=== PATIENT | female | born 1975 | race Caucasian/White ===

== ENCOUNTER 2023-03-15 20:23 | Inpatient (IN) ==
[2023-03-15] MEDS ORDERED: methylPREDNISolone 125 MG/2 ML VIAL IV STA (20:47)
[2023-03-15] MEDS ORDERED: ALBUT/IPRATROP 3MG/0.5MG NEB 3 ML VIAL NEB ONE (20:47)
[2023-03-15] MEDS ORDERED: SODIUM CHLORIDE 0.9% 1,000 ML IV ONE (20:49)
[2023-03-15] MEDS ORDERED: SODIUM CHLORIDE 0.65% NA SOLN 45 ML (OCEAN) ONE (20:49)
--- NOTE | 2023-03-15 20:50 | Emergency Department Note ---
Impression & Plan Acute respiratory failure with hypoxia, Asthma with exacerbation, Flu-2009 H1N1 w oth resp ED Provider Note NAME: ZOHRA MARTINEZ AGE: 48 SEX: F ARRIVES VIA: Walk-In INFORMANT: Patient ED PROVIDER(S): Bobby Shore MD CHIEF COMPLAINT: Cough, congestion, shortness of breath PLAN: Disposition: Admit MEDICAL DECISION MAKING: The patient is a pleasant 48-year-old woman with a past medical history of asthma who presents to the emergency department via walk-in for evaluation of worsening cough, congestion, chest tightness and shortness of breath which is not improving with her asthma inhalers in the setting of reporting that coworkers who she works with also having similar symptoms but is not aware of any viral testing they may have had. She denies fevers, vomiting, diarrhea or urinary symptoms. On evaluation the patient is in mild-moderate respiratory distress with increased work of breathing with poor air movement and underlying wheeze/bronchospasm with prolonged expiratory phase. Respiratory rate was in the 30s, heart rate in the 130s, the patient was hypertensive in the 170s/110s. Treatment initiated with IV hydration, Solu-Medrol, hour-long DuoNeb however despite initiation of her DuoNeb the patient did not have any significant improvement long-term through her treatment and so she was placed on BiPAP with improved work of breathing. EKG without overt acute ischemia. CXR negative for acute cardiopulmonary process per my personal preliminary review/interpretation. WBC, H/H and platelets within normal limits. Chemistry without metabolic acidosis. Electrolytes and FTs unremarkable. High-sensitivity troponin 3.3, within normal limits. hCG was negative. Respiratory viral panel/[employer] was positive for influenza A H1 2009. On reevaluation the patient's work of breathing was significant improved and she was weaned off of BiPAP to nasal cannula. Given the degree of the patient's respiratory distress/respiratory failure she does agree with admission for further management. Tamiflu ordered. Case was discussed with Dr. Simmons, [facility] hospitalist, who will evaluate the patient for admission. Triage Nursing notes reviewed and agree them. Prior/external medical records reviewed Vital Signs: reviewed Differential diagnosis: Reactive airway disease, pneumonia, pneumothorax, COPD, CHF, infections, cardiac ischemia, pulmonary embolism, musculoskeletal, gastrointestinal, as well as other pathologies. ER treatment provided: See below. Diagnostics interpreted by me: ECG: Sinus tachycardia, 136 bpm, no ectopy, no overt ST elevation or depression, QTc 538, QRS 70 Cardiac Monitoring: An order for continuous cardiac monitoring was placed and demonstrated Sinus tachycardia, 136 bpm, no ectopy Laboratory studies: See below Imaging studies: See below Consultation(s): Case was discussed with Dr. Simmons, [facility] hospitalist, who will evaluate the patient for admission. HPI: The patient is a pleasant 48-year-old woman with a past medical history of asthma who presents to the emergency department via walk-in for evaluation of worsening cough, congestion, chest tightness and shortness of breath which is not improving with her asthma inhalers in the setting of reporting that coworkers who she works with also having similar symptoms but is not aware of any viral testing they may have had. She denies fevers, vomiting, diarrhea or urinary symptoms. ROS: See above HPI for pertinent positives & negatives. A total of 10 systems reviewed and were otherwise negative. VITALS:See Below PHYSICAL EXAMINATION: GENERAL: Awake, alert, ill-appearing, in mild-moderate respiratory distress HENT: Normocephalic, atraumatic. Boggy nasal turbinates. Oropharynx with dry mucous membranes EYES: Normal conjunctiva. Sclera non-icteric. NECK: Supple. No nuchal rigidity. FROM. No JVD. RESPIRATORY: Diminished breath sounds bilaterally with underlying wheeze and prolonged expiratory phase with increased work of breathing CARDIAC: Tachycardic rate, normal rhythm. Extremities warm and well perfused. Pulses equal. ABDOMEN: Soft, non-distended. No tenderness to palpation. No rebound or guarding. No masses. RECTAL: Deferred. MUSCULOSKELETAL: Chest examination reveals no tenderness. The back is symmetrical on inspection without obvious abnormality. There is no CVA tenderness to palpation. No joint edema. LOWER EXTREMITIES: Calves are equal size bilaterally and non-tender. No edema. No discoloration. NEURO: Normal sensorium. No sensory or motor deficits noted. SKIN: No rash or jaundice noted. ED COURSE: Critical Care: I have personally spent greater than [] minutes of critical care time in the direct management of this patient. This includes bedside care, interpretation of diagnostic studies, and testing, discussion with consultants, patient, and family members, and other required patient management activities. This [] minutes is in excess of all separately billable procedures. Bobby Shore MD Past Med/Surg History Medical History Asthma delivery delivered Surgical History H/O wisdom tooth extraction Family History Grandfather (Maternal) Myocardial infarction Grandfather (Paternal) Myocardial infarction Other Stroke Denies family history of Colon cancer Ovarian cancer Prostate cancer Breast cancer Hypertension Social History Smoking Status: Never smoker Hx Alcohol Use: Yes Alcohol type: wine Alcohol Intake Frequency: 4 or More x per/Week Hx Substance Use: No Preferred Language: Romanian Communication Ability: Effective marital status: Current Living Situation: Spouse current occupational status: employed current occupation: PLANNER/SCHEDULER FOR [employer] Feels Safe at Home: Yes Childhood Exposure to Second-Hand Smoke: Yes Diet Comment: no specific diet Dental Care, Regularly: Yes Physical Activity Frequency: Does not Exercise Seatbelt Use: always Sunscreen Use: Yes Do you think of yourself as: straight/heterosexual Allergies Allergies Allergy/AdvReac Type Severity Reaction Status Date / Time No Known Allergies Allergy Verified 03/15/23 22:10 Home Meds Home Medications Medication Instructions Recorded Confirmed albuterol sulfate 90 mcg/actuation 2 puff inhalation Q6H PRN 03/15/23 03/15/23 aerosol inhaler shortness of breath or wheezing Results & Data (ED) Vital Signs Vital Signs - 24 hr 03/15/23 20:27 03/15/23 20:44 03/15/23 20:55 Temperature 36.8 C Temperature Source Oral Pulse Rate 139 H 134 H Pulse Rate [Apical] 127 H Pulse Rate from SpO2 Sensor Pulse Rhythm Respiratory Rate 30 H 24 Respiratory Effort / Characteristics Labored Short of Breath Short of Breath Respiratory Depth Respiratory Pattern Tachypnea Blood Pressure 176/119 H Blood Pressure [Right Arm] Blood Pressure Mean 138 Blood Pressure Mean [Right Arm] Blood Pressure Position Sitting Pulse Oximetry 88 L 100 Oxygen Delivery Method Room Air Nasal Cannula Oxygen Flow Rate 6 Fraction of Inspired Oxygen Sepsis Recent Fever Within 48 Hours No Sepsis New/Unexplained Change in Mental Status N/A Sepsis Action Taken by Nursing No Action Required Oxygen Flow Rate - Titration Pulse Oximetry Post Tiitration 03/15/23 21:01 03/15/23 21:01 03/15/23 21:01 Temperature Temperature Source Pulse Rate Pulse Rate [Apical] 130 H Pulse Rate from SpO2 Sensor Pulse Rhythm Respiratory Rate 20 Respiratory Effort / Characteristics Labored Short of Breath Labored Short of Breath Respiratory Depth Normal Respiratory Pattern Gasping Blood Pressure Blood Pressure [Right Arm] 158/97 H Blood Pressure Mean Blood Pressure Mean [Right Arm] 117 Blood Pressure Position Pulse Oximetry 87 L 98 Oxygen Delivery Method Nasal Cannula Oxymask Oxygen Flow Rate 7 Fraction of Inspired Oxygen Sepsis Recent Fever Within 48 Hours Sepsis New/Unexplained Change in Mental Status Sepsis Action Taken by Nursing Oxygen Flow Rate - Titration 6 Pulse Oximetry Post Tiitration 96 03/15/23 21:01 03/15/23 21:09 03/15/23 21:23 Temperature Temperature Source Pulse Rate 130 H 134 H 124 H Pulse Rate [Apical] Pulse Rate from SpO2 Sensor 133 H Pulse Rhythm Regular Respiratory Rate 20 24 21 Respiratory Effort / Characteristics Respiratory Depth Respiratory Pattern Blood Pressure 157/121 H Blood Pressure [Right Arm] Blood Pressure Mean 133 Blood Pressure Mean [Right Arm] Blood Pressure Position Pulse Oximetry 99 94 100 Oxygen Delivery Method Aerosol Mask Nebulizer Oxygen Flow Rate 7 7 Fraction of Inspired Oxygen 40 Sepsis Recent Fever Within 48 Hours Sepsis New/Unexplained Change in Mental Status Sepsis Action Taken by Nursing Oxygen Flow Rate - Titration Pulse Oximetry Post Tiitration 03/15/23 21:30 03/15/23 22:00 03/15/23 22:30 Temperature Temperature Source Pulse Rate 123 H 126 H 122 H Pulse Rate [Apical] Pulse Rate from SpO2 Sensor 123 H 126 H 122 H Pulse Rhythm Respiratory Rate 20 22 25 H Respiratory Effort / Characteristics Respiratory Depth Respiratory Pattern Blood Pressure 145/90 H 127/95 128/97 Blood Pressure [Right Arm] Blood Pressure Mean 108 105 107 Blood Pressure Mean [Right Arm] Blood Pressure Position Pulse Oximetry 100 100 100 Oxygen Delivery Method BiPAP BiPAP BiPAP Oxygen Flow Rate Fraction of Inspired Oxygen 40 40 40 Sepsis Recent Fever Within 48 Hours Sepsis New/Unexplained Change in Mental Status Sepsis Action Taken by Nursing Oxygen Flow Rate - Titration Pulse Oximetry Post Tiitration 03/15/23 23:00 03/15/23 23:30 03/16/23 00:00 Temperature Temperature Source Pulse Rate 125 H 119 H 118 H Pulse Rate [Apical] Pulse Rate from SpO2 Sensor 124 H 118 H Pulse Rhythm Respiratory Rate 23 20 22 Respiratory Effort / Characteristics Respiratory Depth Respiratory Pattern Blood Pressure 130/92 136/90 151/97 H Blood Pressure [Right Arm] Blood Pressure Mean 104 105 115 Blood Pressure Mean [Right Arm] Blood Pressure Position Pulse Oximetry 100 96 96 Oxygen Delivery Method BiPAP Nasal Cannula Nasal Cannula Oxygen Flow Rate 3 3 Fraction of Inspired Oxygen 40 Sepsis Recent Fever Within 48 Hours Sepsis New/Unexplained Change in Mental Status Sepsis Action Taken by Nursing Oxygen Flow Rate - Titration Pulse Oximetry Post Tiitration 03/16/23 00:30 03/16/23 00:40 03/16/23 00:55 Temperature Temperature Source Pulse Rate 112 H 115 H 126 H Pulse Rate [Apical] Pulse Rate from SpO2 Sensor 114 H 125 H Pulse Rhythm Respiratory Rate 22 22 Respiratory Effort / Characteristics Respiratory Depth Respiratory Pattern Blood Pressure 138/90 149/95 H Blood Pressure [Right Arm] Blood Pressure Mean 106 113 Blood Pressure Mean [Right Arm] Blood Pressure Position Pulse Oximetry 96 97 Oxygen Delivery Method Nasal Cannula Nasal Cannula Oxygen Flow Rate 3 3 Fraction of Inspired Oxygen Sepsis Recent Fever Within 48 Hours Sepsis New/Unexplained Change in Mental Status Sepsis Action Taken by Nursing Oxygen Flow Rate - Titration Pulse Oximetry Post Tiitration Laboratory Data Attestation: I reviewed the patient's lab results. 03/15/23 20:47 03/15/23 20:47 Lab Results 03/15/23 03/15/23 03/16/23 Range/Units 20:30 20:47 00:07 WBC 7.53 (4.8-10.8) K/ul RBC 5.06 (4.20-5.40) M/uL Hgb 14.2 (12.0-16.0) g/dl Hct 45.9 (37.0-47.0) % MCV 90.7 (80.0-100.0) fL MCH 28.1 (25.0-34.0) pg MCHC 30.9 L (32.0-36.0) g/dL RDW Std Deviation 48.9 H (36.4-46.3) fL RDW Coeff of Analisa 14.6 H (11.5-14.5) % Plt Count 345 (130-400) K/uL MPV 9.9 (9.4-12.4) fL Immature Gran % (Auto) 0.5 % Neut % (Auto) 72.5 % Lymph % (Auto) 13.9 % Sherman % (Auto) 12.4 % Eos % (Auto) 0.4 % Baso % (Auto) 0.3 % Neut # (Auto) 5.46 (1.40-6.50) K/uL Lymph # (Auto) 1.05 L (1.20-3.40) K/uL Sherman # (Auto) 0.93 H (0.11-0.59) K/uL Eos # (Auto) 0.03 (0.00-0.50) K/uL Baso # (Auto) 0.02 (0.00-0.20) K/uL Immature Gran # (Auto) 0.04 (0.01-0.20) K/uL VBG pH 7.27 L (7.36-7.41) VBG pCO2 48 (38-50) mmHg VBG pO2 32 mmHg VBG HCO3 22 mmol/L VBG O2 Saturation < 60.0 % VBG Base Excess -5.1 mEq/L Sodium 138 (136-145) mmol/L Potassium 3.8 (3.5-5.1) mmol/L Chloride 104 (98-107) mmol/L Carbon Dioxide 21 (21-32) mmol/L Anion Gap 13 H (3-11) BUN 7 (6-23) mg/dl Creatinine 0.85 (0.6-1.2) mg/dl Est Cr Clr Drug Dosing Not Reportable Est GFR ( Amer) 95.2 ml/min Est GFR (Non-Af Amer) 82.2 ml/min BUN/Creatinine Ratio 8.2 L (10-20) Glucose 167 H (70-99(Fasting)) mg/dl Calcium 8.9 (8.6-10.3) mg/dl Magnesium 2.2 (1.7-2.4) mg/dl Total Bilirubin 0.3 (0.2-1.0) mg/dl AST 31 (13-39) U/L ALT 24 (7-52) U/L Alkaline Phosphatase 58 (34-104) U/L Troponin I High Sens 3.3 (0-14) pg/ml Total Protein 8.3 (6.0-8.3) gm/dl Albumin 4.5 (3.4-5.0) gm/dl Globulin 3.8 (2.5-4.0) gm/dl Albumin/Globulin Ratio 1.2 (0.9-2) Lipase 22 (11-82) U/L HCG, Qual Negative (Negative) Nasal Influ A H1 2008 PCR DETECTED A* (NotDetected) Adenovirus (PCR) Not Detected (NotDetected) B. pertussis DNA (PCR) Not Detected (NotDetected) B.parapertussis DNA PCR Not Detected (NotDetected) C. pneumoniae DNA (PCR) Not Detected (NotDetected) Coronavirus OC43 (PCR) Not Detected (NotDetected) Coronavirus HKU1 (PCR) Not Detected (NotDetected) Coronavirus 229E (PCR) Not Detected (NotDetected) SARS-CoV-2 (PCR) Not Detected (NotDetected) Coronavirus NL63 (PCR) Not Detected (NotDetected) Human Metapneumovir PCR Not Detected (NotDetected) Influenza Type B (PCR) Not Detected (NotDetected) M. pneumoniae (PCR) Not Detected (NotDetected) Parainfluenza 1 (PCR) Not Detected (NotDetected) Parainfluenza 2 (PCR) Not Detected (NotDetected) Parainfluenza 3 (PCR) Not Detected (NotDetected) Parainfluenza 4 (PCR) Not Detected (NotDetected) RSV (PCR) Not Detected (NotDetected) Entero/Rhino (PCR) Not Detected (NotDetected) Administered Medications Guaifenesin (Guaifenesin 600 Mg Tabcr) 1,200 mg PO Q12 [facility] Stop: 04/14/23 20:59 Last Admin: 03/15/23 20:54 Dose: 1,200 mg Documented By: JKP Discontinued Medications Albuterol (Albut/Ipratrop 3mg/0.5mg Neb 3 Ml Vial) 12 ml NEB ONE ONE; Protocol Stop: 03/15/23 20:48 Last Admin: 03/15/23 20:55 Dose: 12 ml Documented By: ANGELA Sodium Chloride (Nss) 1,000 mls @ 999 mls/hr IV .Q1H1M ONE Stop: 03/15/23 21:49 Last Infusion: 03/15/23 23:00 Dose: Infused Documented By: Admin: 03/15/23 20:55 Dose: 999 mls/hr Documented By: JAMEE Methylprednisolone (Methylprednisolone 125 Mg/2 Ml Vial) 125 mg IV NOW STA Stop: 03/15/23 20:48 Last Admin: 03/15/23 20:54 Dose: 125 mg Documented By: JAMEE Oseltamivir Phosphate (Oseltamivir Phosphate 75 Mg Cap) 75 mg PO NOW STA; Protocol Stop: 03/15/23 23:29 Last Admin: 03/15/23 23:39 Dose: 75 mg Documented By: SHIVA Sodium Chloride (Sodium Chloride 0.65% Na Soln 45 Ml ([place])) 2 sprays NA NOW ONE Stop: 03/15/23 20:50 Last Admin: 03/15/23 20:55 Dose: 2 sprays Documented By: JAMEE Discharge Plan Visit Data Chief Complaint: Shortness of Breath/Dyspnea Stated Complaint: ASTHMA, CHEST PAIN, SOB ED Provider: Bobby Shore Discharge Problem: Acute respiratory failure with hypoxia, Asthma with exacerbation, Flu-2009 H1N1 w oth resp Patient Disposition: Admitted As Inpatient Discharge Instructions Interventions: ED Discharge Assessment Last Done: 03/16/23 01:05 Forms Stand Alone Forms: [facility] Prescriptions Prescriptions: No Action albuterol sulfate 90 mcg/actuation HFA aerosol inhaler 2 puff INH Q6H PRN (Reason: shortness of breath or wheezing) Referrals Referrals: Warren Johnson III, CRNP [Primary Care Provider] - Discharge Problem: Asthma with exacerbation Qualifiers: Asthma severity: unspecified severity Asthma persistence: intermittent Q ualified Code(s): J45.21 - Mild intermittent asthma with (acute) exacerbation
[2023-03-15] MEDS: guaiFENesin 600 MG TABCR PO SCH (20:54)
[2023-03-15 21:19] LABS: Basophils # (auto) 0.02 K/uL (0.00-0.20); Basophils % (auto) 0.3 %; Eosinophils # (auto) 0.03 K/uL (0.00-0.50); Eosinophils % (auto) 0.4 %; Hematocrit (blood only) 45.9 % (37.0-47.0); Hemoglobin 14.2 g/dl (12.0-16.0); Immature Granulocytes # (auto) 0.04 K/uL (0.01-0.20); Immature Granulocytes % (auto) 0.5 %; Lymphocytes # (auto) 1.05 K/uL (1.20-3.40); Lymphocytes % (auto) 13.9 %; Mean Corpuscular Hemoglobin 28.1 pg (25.0-34.0); Mean Corpuscular Hgb Conc 30.9 g/dL (32.0-36.0); Mean Corpuscular Volume 90.7 fL (80.0-100.0); Mean Platelet Volume 9.9 fL (9.4-12.4); Monocytes # (auto) 0.93 K/uL (0.11-0.59); Monocytes % (auto) 12.4 %; Neutrophils # (auto) 5.46 K/uL (1.40-6.50); Neutrophils % (auto) 72.5 %; Platelet Count 345 K/uL (130-400); RDW Coefficient of Variation 14.6 % (11.5-14.5); RDW Standard Deviation 48.9 fL (36.4-46.3); Red Blood Count 5.06 M/uL (4.20-5.40); White Blood Count 7.53 K/ul (4.8-10.8)
[2023-03-15 21:39] LABS: Pregnancy Test, Serum Negative (Negative)
[2023-03-15 21:44] LABS: Adenovirus PCR Not Detected (NotDetected); Bordetella parapertussis PCR Not Detected (NotDetected); Bordetella pertussis PCR Not Detected (NotDetected); Chlamydia pneumoniae PCR Not Detected (NotDetected); Coronavirus 229E PCR Not Detected (NotDetected); Coronavirus CoV-2 (COVID19)PCR Not Detected (NotDetected); Coronavirus HKU1 PCR Not Detected (NotDetected); Coronavirus NL63 PCR Not Detected (NotDetected); Coronavirus OC43PCR Not Detected (NotDetected); Human Metapneumovirus PCR Not Detected (NotDetected); Influenza B PCR Not Detected (NotDetected); Mycoplasma pneumoniae PCR Not Detected (NotDetected); Parainfluenza Virus 1 PCR Not Detected (NotDetected); Parainfluenza Virus 2 PCR Not Detected (NotDetected); Parainfluenza Virus 3 PCR Not Detected (NotDetected); Parainfluenza Virus 4 PCR Not Detected (NotDetected); Respiratory Syncytial VirusPCR Not Detected (NotDetected); Rhinovirus/Enterovirus PCR Not Detected (NotDetected)
[2023-03-15 22:00] LABS: Alanine Aminotransferase 24 U/L (7-52); Albumin Globulin Ratio 1.2 (0.9-2); Albumin Level 4.5 gm/dl (3.4-5.0); Alkaline Phosphatase 58 U/L (34-104); Anion Gap 13 (3-11); Aspartate Aminotransferase 31 U/L (13-39); BUN Creatinine Ratio 8.2 (10-20); Bilirubin,Total 0.3 mg/dl (0.2-1.0); Blood Urea Nitrogen 7 mg/dl (6-23); Calcium 8.9 mg/dl (8.6-10.3); Carbon Dioxide 21 mmol/L (21-32); Chloride 104 mmol/L (98-107); Est GFR (African American) 95.2 ml/min; Est GFR (Non-African American) 82.2 ml/min; Globulin 3.8 gm/dl (2.5-4.0); Glucose 167 mg/dl (70-99(Fasting)); Lipase 22 U/L (11-82); Magnesium 2.2 mg/dl (1.7-2.4); Potassium 3.8 mmol/L (3.5-5.1); Sodium 138 mmol/L (136-145); Total Protein 8.3 gm/dl (6.0-8.3)
[2023-03-15 22:06] LABS: Troponin I High Sensitivity 3.3 pg/ml (0-14)
[2023-03-15 22:37] LABS: Influenza A (H1 2009) PCR DETECTED (NotDetected)
[2023-03-15] MEDS ORDERED: OSELTAMIVIR PHOSPHATE 75 MG CAP PO STA (23:28)
--- NOTE | 2023-03-15 23:47 | History & Physical Report ---
Date of Service March 15, 2023 Assessment & Plan (1) Acute respiratory failure with hypoxia: Plan: -Pt with history of asthma presenting with acute respiratory symptoms, positive for Flu A on admission, and resultant hypoxic respiratory failure -> acute hypox ic respiratory failure secondary to asthma exacerbation from acute influenza A infection -Supportive care as follows -Duoneb q4 -S/p Solumedrol 125 mg in ER -> Solumedrol 40 mg BID with low threshold to transition to prednisone -Tamiflu 75 mg BID x5 days -Mucinex BID -Benzonatate PRN cough -Incentive spirometry -Supplemental O2 as needed, wean to RA -Deferring antibiotics given low concern for superimposed bacterial infection -Currently stable respiratory status on 3L NC with successful wean from BIPAP -Would recommend walk test before discharge to assess need for home O2 though unlikely to require this given her significant improvement with initial interventions (2) Asthma with exacerbation: Plan: -See above -Does not appear to be on any maintenance inhalers as outpatient (3) Flu-2009 H1N1 w oth resp: Plan: -See above -Droplet precautions (4) Sinus tachycardia: Plan: -Likely physiologic/compensatory to acute illness -EKG NSR w/o arrhythmia/ectopy noted -As pt will receive steroids and required BIPAP for AHRF in ER, will monitor on telemetry for now (5) Elevated blood pressure reading: Plan: -Elevated BP in ER w/o formal diagnosis of HTN as outpatient -BP elevation likely secondary to acute illness -Anticipate elevated BP while on steroids, continue to monitor -Outpatient f/u with PCP recommended Plan FENGI: Regular Code status: Full DVT prophylaxis: SCDs Isolation: Droplet Unit: Medical/surgical with telemetry Disposition planning: Likely home History of Present Illness Chief Complaint: Dyspnea Primary Care Provider: Warren Johnson, HEIDI, TAYLOR Pt is 48 yo F with PMH RAD presenting with dyspnea. Pt reports onset of multiple symptoms on evening of 12/12- cough productive of clear/yellow sputum, nasal/chest congestion, shortness of breath. She did have sick contacts among her coworkers who had similar symptoms prior to her own symptom onset. Pt has tried using her albuterol inhaler at home and a nebulizer treatment the previous evening but did not have any relief. Her symptoms continued to worsen until she presented to ER for evaluation. Denies fever, chills, chest pain. No recent travel. She usually gets flu vaccine but did not do so this year. She has not an asthma exacerbation for several years. Pt arrived to ER with HR 120s-130s, BP elevated to 150s-170s/90s-110s, RR to 30s. She became hypoxic to 88% O2 for which she was started on 6L NC and transitioned to oxymask 7L without any improvement. She was put on BIPAP / after no improvement with duoneb, which did provide relief of dyspnea and resolved hypoxia, eventually being weaned to 3L NC. Initial workup unremarkable including CBC, CMP, troponin. CXR negative for acute process. Flu A positive. ER interventions include Solumedrol 125 mg, Mucinex 1200 mg, albuterol 12 ml nebulizer, NSS 1L bolus, Tamiflu. At present, pt reports feeling much better compared to ER arrival. No new complaints. Allergies Allergy/AdvReac Type Severity Reaction Status Date / Time No Known Allergies Allergy Verified 03/15/23 22:10 Home Medications Medication Instructions Recorded Confirmed Type albuterol sulfate 90 mcg/actuation 2 puff inhalation Q6H PRN 03/15/23 03/15/23 History aerosol inhaler shortness of breath or wheezing Past Med/Surg History Medical History (Updated 03/15/23 @ 23:56 by Gilberto Sandoval MD) delivery delivered Surgical History H/O wisdom tooth extraction Family History Grandfather (Maternal) Myocardial infarction Grandfather (Paternal) Myocardial infarction Other Stroke Denies family history of Colon cancer Ovarian cancer Prostate cancer Breast cancer Hypertension Social History Smoking Status: Never smoker Hx Alcohol Use: Yes Alcohol type: wine Alcohol Intake Frequency: 4 or More x per/Week Hx Substance Use: No Preferred Language: Urdu Communication Ability: Effective marital status: Current Living Situation: Spouse current occupational status: employed current occupation: SOCIAL SERVICE TECHNICIAN FOR [employer] Feels Safe at Home: Yes Childhood Exposure to Second-Hand Smoke: Yes Diet Comment: no specific diet Dental Care, Regularly: Yes Physical Activity Frequency: Does not Exercise Seatbelt Use: always Sunscreen Use: Yes Do you think of yourself as: straight/heterosexual Review of Systems Review of Systems: Per HPI/Subjective Physical Exam Physical Exam: General: well-appearing, no acute distress, NC in place at 3L O2 HEENT: PERRL, EOMI, conjunctivae clear without injection, anicteric sclerae, moist mucous membranes, clear oropharynx without exudate or erythema Neck: supple, trachea midline, no thyromegaly, no JVD, no cervical lymphadenopathy CV: RRR, normal S1 and S2, no murmurs Resp: Very slightly diminished breath sounds without increased work of breathing, no crackles or wheezes Abd: Soft, nontender, nondistended, no guarding or rebound, no hepatosplenomegaly MSK: Normal bulk of all four extremities Neuro: AOx3, no focal motor or sensory deficits Skin: no rashes or lesions, warm and dry Ext: no LE peripheral edema or erythema, capillary refill <2s in all four extremities, 2+ LE peripheral pulses b/l Results & Data Results & Data Vital Signs (Past 12 Hours) Vital Signs Temp Pulse Pulse Resp BP BP Pulse Ox 03/15/23 23:30 119 H 20 136/90 96 03/15/23 23:00 125 H 23 130/92 100 03/15/23 22:30 122 H 25 H 128/97 100 03/15/23 22:00 126 H 22 127/95 100 03/15/23 21:30 123 H 20 145/90 H 100 03/15/23 21:23 124 H 21 100 03/15/23 21:09 134 H 24 157/121 H 94 03/15/23 21:01 130 H 20 99 03/15/23 21:01 130 H 20 158/97 H 98 03/15/23 21:01 87 L 03/15/23 20:55 127 H 24 100 03/15/23 20:44 134 H 03/15/23 20:27 36.8 C 139 H 30 H 176/119 H 88 L O2 Del Method O2 Flow Rate FiO2 03/15/23 23:30 Nasal Cannula 3 03/15/23 23:00 BiPAP 40 03/15/23 22:30 BiPAP 40 03/15/23 22:00 BiPAP 40 03/15/23 21:30 BiPAP 40 03/15/23 21:23 40 03/15/23 21:09 Nebulizer 7 12/14/23 21:01 Aerosol Mask 7 03/15/23 21:01 Oxymask 7 03/15/23 21:01 Nasal Cannula 03/15/23 20:55 Nasal Cannula 6 03/15/23 20:44 03/15/23 20:27 Room Air Code Status & VTE Plan VTE Prophylaxis Plan VTE Prophylaxis will be ordered: Yes Supervising Physician Co-Signing Physician Notes I have personally seen, evaluated and examined the patient. I have also personally discussed the management of the patient with the resident physician and I agree with the exam findings documented in the history and physical examination and the documented assessment and plan unless otherwise stated below. HEENT: Normocephalic atraumatic pupils are equal round and reactive to light bi laterally. No scleral icterus no conjunctival injection external auditory canals are patent septum is in the midline nose is without discharge oral mucosa is pink and moist without lesion. NECK: Supple no rigidity no lymphadenopathy no thyromegaly no carotid bruits no JVD no masses. HEART: Regular rate and rhythm I do not appreciate any ectopy or rub. No murmur. LUNGS: Clear to auscultation bilaterally and anteriorly but globally diminished. I do not appreciate any wheezes or rales or rhonchi at this time however apparently this is much improved from presentation in the ER earlier today ABDOMEN: Soft nontender, no rebound, no peritoneal signs, positive bowel sounds, no appreciable organomegaly. EXTREMITIES: Intact, no peripheral cyanosis, clubbing or edema. Strength is 5 out of 5 in extremities x4, no pathological reflexes. NEUROLOGICAL: Cranial nerves II through XII are grossly intact with no focal deficit elicited upon examination. No tremor. Assessment/plan: As described above. Please refer to orders for further planning. In short exacerbation of asthma secondary to acute influenza A infection. Continue nebulizer treatments corticosteroids IV as well as Tamiflu for influenza acute infection. Continue oxygen therapy as needed titrate as tolerated. Possible discharge in the next 48 hours pending clinical course Resident Activity Tracking Resident Involvement: Resident Care Provided Care Provided: Adult Hospital Medicine
[2023-03-16 00:24] LABS: Base Excess VBG -5.1 mEq/L; HCO3 VBG 22 mmol/L; Oxygen Saturation VBG < 60.0 %; PCO2 VBG 48 mmHg (38-50); PO2 VBG 32 mmHg; pH VBG 7.27 (7.36-7.41)
--- NOTE | 2023-03-16 00:54 | Billing Data ---
Date of Service March 16, 2023 Coding Level of Care Code 18056 INT INP/OBS CARE
[2023-03-16] MEDS ORDERED: LACTATED RINGER'S 1,000 ML IV SCH (01:42)
[2023-03-16] MEDS: ALBUT/IPRATROP 3MG/0.5MG NEB 3 ML VIAL NEB SCH ×6 (02:25→22:58)
[2023-03-16] MEDS ORDERED: ALBUT/IPRATROP 3MG/0.5MG NEB 3 ML VIAL NEB STA (05:20)
[2023-03-16] MEDS ORDERED: XOPENEX/ATROVENT 0.63mg/0.5MG NEB COMBO NEB STA (05:30)
[2023-03-16] MEDS ORDERED: LEVALBUTEROL HCL 0.63 MG/3 ML NEB ONE (05:44)
[2023-03-16] MEDS ORDERED: IPRATROPIUM BROMIDE NEB SOLN 0.02% 2.5 ML VIAL INH STA (05:58)
[2023-03-16] MEDS ORDERED: LEVALBUTEROL HCL 0.63 MG/3 ML NEB NEB STA (05:58)
[2023-03-16 06:23] LABS: Hematocrit (blood only) 44.3 % (37.0-47.0); Mean Corpuscular Hemoglobin 28.3 pg (25.0-34.0); Mean Corpuscular Hgb Conc 31.6 g/dL (32.0-36.0); Mean Corpuscular Volume 89.5 fL (80.0-100.0); Mean Platelet Volume 9.6 fL (9.4-12.4); Platelet Count 352 K/uL (130-400); RDW Coefficient of Variation 14.6 % (11.5-14.5); RDW Standard Deviation 47.8 fL (36.4-46.3); Red Blood Count 4.95 M/uL (4.20-5.40); White Blood Count 6.26 K/ul (4.8-10.8)
[2023-03-16 06:48] LABS: Calcium 9.1 mg/dl (8.6-10.3); Creatinine Clr Calc Pharmacy 99.5 ml/min; Est GFR (African American) 120.4 ml/min; Est GFR (Non-African American) 103.9 ml/min; Potassium 4.6 mmol/L (3.5-5.1)
--- NOTE | 2023-03-16 06:55 | XRay Report ---
XR chest 1V portable HISTORY: 48 years-old Female Chest pain, nonspecific COMPARISON: None TECHNIQUE: AP view of the chest FINDINGS: Cardiomediastinal and hilar silhouettes are within normal limits. There is no pneumothorax, pleural e ffusion, airspace consolidation or pulmonary edema. There is mild midthoracic dextroscoliosis. The hannah francesca of the chest appear grossly intact. IMPRESSION: No acute process of the chest. ACT 112: Negative or not required by law. The above report was generated using voice recognition software. It may contain grammatical, syntax o r spelling errors. Electronically signed by: Adarsh Pereira M.D. 03/16/2023 6:53 AM
[2023-03-16] MEDS: BENZONATATE 100 MG CAPSULE PO SCH ×3 (08:31→20:23)
[2023-03-16] MEDS: methylPREDNISolone 40 MG in SYRINGE 0 ML IV SCH ×2 (08:31→20:22)
[2023-03-16] MEDS: OSELTAMIVIR PHOSPHATE 75 MG CAP PO SCH ×2 (08:31→20:23)
[2023-03-16] MEDS: guaiFENesin 600 MG TABCR PO SCH ×2 (10:11→20:22)
[2023-03-16] MEDS: ACETAMINOPHEN 500 MG TAB PO PRN ×2 (10:11→23:15)
--- NOTE | 2023-03-16 10:30 | Hospitalist Progress Note ---
Date of Service March 16, 2023 Assessment & Plan (1) Acute respiratory failure with hypoxia: Plan: -Pt with history of asthma presenting with acute respiratory symptoms, positive for Flu A on admission, and resultant hypoxic respiratory failure -> acute hypox ic respiratory failure secondary to asthma exacerbation from acute influenza A infection -Supportive care as follows -Duoneb q4 -S/p Solumedrol 125 mg in ER -> Solumedrol 40 mg BID with low threshold to transition to prednisone -Tamiflu 75 mg BID x5 days -Mucinex BID -Benzonatate PRN cough -Incentive spirometry -Supplemental O2 as needed, wean to RA -Deferring antibiotics given low concern for superimposed bacterial infection -Currently stable respiratory status on 3L NC with successful wean from BIPAP - I would feel comfortable discharging this patient once they have demonstrated the ability to breathe comfortably and independently without supplemental oxygen.Will continue to monitor. (2) Asthma with exacerbation: Plan: -See above -Does not appear to be on any maintenance inhalers as outpatient (3) Flu-2008 H1N1 w oth resp: Plan: -See above -Droplet precautions (4) Sinus tachycardia: Plan: -Likely physiologic/compensatory to acute illness -EKG NSR w/o arrhythmia/ectopy noted -As pt will receive steroids and required BIPAP for AHRF in ER, will monitor on telemetry for now (5) Elevated blood pressure reading: Plan: -Elevated BP in ER w/o formal diagnosis of HTN as outpatient -BP elevation likely secondary to acute illness -Anticipate elevated BP while on steroids, continue to monitor -Outpatient f/u with PCP recommended Plan FENGI: Regular Code status: Full DVT prophylaxis: SCDs Isolation: Droplet Unit: Medical/surgical with telemetry Disposition planning: Likely home Admission and Anticipated Discharge Date Admission Date: March 15, 2023 Supervising Physician Co-Signing Physician Notes Attending Physician Supervision Note: I independently interviewed and examined the patient and verified the romo history and physical, reviewed labs and image studies and agree with findings and care plan noted above. Breathing better but still with wheezing and cough. vitals noted, sitting at the edge of bed. air entry across lung field restricted. tachycardic. Acute respiratory failure, hypoxic due to asthma exacerbation in setting of influenza - -O2 support, steroids - 40mg bid, tamiflu, nebs, symptom tx. ambulation. Subjective Mireille Welch is a 48yo female w/ a pmh of asthma that presented to the ED last night with dyspnea. She is currently sitting upright at the edge of her bed with 3L O2 NC. She states that she feels that she is still working to breathe, and that she has a headache and a stiff back from doing so. She denies cough, n/v/d. She does not have any other concerns at this time. Review of Systems Review of Systems: as per HPI/Subjective Physical Exam Physical Exam: General: well-appearing, dyspneic, NC in place at 3L O2 HEENT: PERRL, EOMI, conjunctivae clear without injection, anicteric sclerae, moist mucous membranes, clear oropharynx without exudate or erythema CV: RRR, normal S1 and S2, no murmurs Resp: diminished breath sounds bilaterally. Faint wheezing and crackles at both lung bases. Abd: Soft, nontender, nondistended, no guarding or rebound, no hepatosplenomegaly Neuro: AOx3, no focal motor or sensory deficits Skin: no rashes or lesions, warm and dry Results & Data Results & Data Vital Signs (Past 12 Hours) Vital Signs Temp Pulse Pulse Resp BP BP Pulse Ox 03/16/23 08:10 36.6 C 113 H 16 127/97 94 03/16/23 07:44 114 H 22 96 03/16/23 07:40 114 H 22 96 03/16/23 06:04 136 H 24 99 03/16/23 05:53 136 H 24 99 03/16/23 02:25 118 H 22 97 03/16/23 02:13 123 H 03/16/23 02:13 03/16/23 01:42 94 03/16/23 00:55 126 H 22 149/95 H 97 03/16/23 00:40 115 H 03/16/23 00:30 112 H 22 138/90 96 03/16/23 00:00 118 H 22 151/97 H 96 03/15/23 23:30 119 H 20 136/90 96 03/15/23 23:00 125 H 23 130/92 100 03/15/23 22:30 122 H 25 H 128/97 100 O2 Del Method O2 Flow Rate FiO2 03/16/23 08:10 BiPAP 2 03/16/23 07:44 BiPAP 2 03/16/23 07:40 2 03/16/23 06:04 BiPAP 2 03/16/23 05:53 2 03/16/23 02:25 Nasal Cannula 3 03/16/23 02:13 03/16/23 02:13 Nasal Cannula 2 03/16/23 01:42 Nasal Cannula 2 03/16/23 00:55 Nasal Cannula 3 03/16/23 00:40 03/16/23 00:30 Nasal Cannula 3 03/16/23 00:00 Nasal Cannula 3 03/15/23 23:30 Nasal Cannula 3 03/15/23 23:00 BiPAP 40 03/15/23 22:30 BiPAP 40 Laboratory Results Abnormal lab results 03/15/23 03/15/23 03/16/23 Range/Units 20:30 20:47 00:07 MCHC 30.9 L (32.0-36.0) g/dL RDW Std Deviation 48.9 H (36.4-46.3) fL RDW Coeff of Analisa 14.6 H (11.5-14.5) % Lymph # (Auto) 1.05 L (1.20-3.40) K/uL Kidder # (Auto) 0.93 H (0.11-0.59) K/uL VBG pH 7.27 L (7.36-7.41) Anion Gap 13 H (3-11) BUN/Creatinine Ratio 8.2 L (10-20) Glucose 167 H (70-99(Fasting)) mg/dl Nasal Influ A 2008 PCR DETECTED A* (NotDetected) 03/16/23 Range/Units 05:43 MCHC 31.6 L (32.0-36.0) g/dL RDW Std Deviation 47.8 H (36.4-46.3) fL RDW Coeff of Analisa 14.6 H (11.5-14.5) % Lymph # (Auto) (1.20-3.40) K/uL Kidder # (Auto) (0.11-0.59) K/uL VBG pH (7.36-7.41) Anion Gap (3-11) BUN/Creatinine Ratio (10-20) Glucose 145 H (70-99(Fasting)) mg/dl Nasal Influ A 2008 PCR (NotDetected) Diagnostic Findings Chest X-Ray 03/15/23 20:48 XR chest 1V portable HISTORY: 48 years-old Female Chest pain, nonspecific TECHNIQUE: AP view of the chest FINDINGS: Cardiomediastinal and hilar silhouettes are within normal limits. There is no pneumothorax, pleural effusion, airspace consolidation or pulmonary edema. There is mild midthoracic dextroscoliosis. The bones of the chest appear grossly intact. IMPRESSION: No acute process of the chest. Electronically signed by: dAarsh Pereira M.D. 03/16/2023 6:53 AM Medications Administered Current Inpatient Medications Acetaminophen (Acetaminophen 500 Mg Tab) 500 mg PO Q4H PRN PRN Reason: Pain or Fever Stop: 04/15/23 08:52 Last Admin: 03/16/23 10:11 Dose: 500 mg Albuterol (Albut/Ipratrop 3mg/0.5mg Neb 3 Ml Vial) 3 ml NEB Q4R [facility]; Protocol Stop: 04/15/23 02:59 Last Admin: 03/16/23 07:40 Dose: 3 ml Benzonatate (Benzonatate 100 Mg Capsule) 100 mg PO TID [facility] Stop: 04/15/23 08:59 Last Admin: 03/16/23 08:31 Dose: 100 mg Guaifenesin (Guaifenesin 600 Mg Tabcr) 1,200 mg PO Q12 [facility] Stop: 04/14/23 20:59 Last Admin: 03/16/23 10:11 Dose: 1,200 mg Lactated Ringer's (Lr) 1,000 mls @ 80 mls/hr IV .[id number] [facility] Stop: 03/16/23 14:11 Last Admin: 03/16/23 05:27 Dose: 80 mls/hr Methylprednisolone 40 mg/ (Syringe) 0.64 mls @ 1.5 mls/min IV BID [facility] Stop: 04/15/23 08:59 Last Admin: 03/16/23 08:31 Dose: 1.5 mls/min Oseltamivir Phosphate (Oseltamivir Phosphate 75 Mg Cap) 75 mg PO BID [facility]; Protocol Stop: 03/21/23 08:59 Last Admin: 03/16/23 08:31 Dose: 75 mg (2) Asthma with exacerbation Asthma persistence: intermittent Asthma severity: unspecified severity Qualified Code(s): J45.21 - Mild intermittent asthma with (acute) exacerbation
--- NOTE | 2023-03-16 12:18 | Electrocardiogram Report ---
Test Reason : Blood Pressure : / mmHG Vent. Rate : 136 BPM Atrial Rate : 136 BPM P-R Int : 120 ms QRS Dur : 070 ms QT Int : 358 ms P-R-T Axes : 085 085 064 degrees QTc Int : 538 ms Poor data quality, interpretation may be adversely affected Sinus tachycardia Otherwise normal ECG No previous ECGs available Confirmed by Karl Allen ([id number]) on 03/16/2023 12:18:05 PM Referred By: REFERRED SELF Confirmed By:Karl Allen
[2023-03-16] MEDS: LORazepam 0.5 MG in SYRINGE 0.25 ML IV PRN (18:15)
[2023-03-17] MEDS: ALBUT/IPRATROP 3MG/0.5MG NEB 3 ML VIAL NEB SCH ×6 (02:49→21:40)
[2023-03-17 05:34] LABS: Basophils # (auto) 0.01 K/uL (0.00-0.20); Basophils % (auto) 0.1 %; Hematocrit (blood only) 42.4 % (37.0-47.0); Hemoglobin 13.3 g/dl (12.0-16.0); Immature Granulocytes # (auto) 0.04 K/uL (0.01-0.20); Immature Granulocytes % (auto) 0.4 %; Lymphocytes # (auto) 0.65 K/uL (1.20-3.40); Lymphocytes % (auto) 6.6 %; Mean Corpuscular Hemoglobin 28.3 pg (25.0-34.0); Mean Corpuscular Hgb Conc 31.4 g/dL (32.0-36.0); Mean Corpuscular Volume 90.2 fL (80.0-100.0); Mean Platelet Volume 9.6 fL (9.4-12.4); Monocytes # (auto) 0.55 K/uL (0.11-0.59); Monocytes % (auto) 5.6 %; Neutrophils # (auto) 8.64 K/uL (1.40-6.50); Neutrophils % (auto) 87.3 %; Platelet Count 363 K/uL (130-400); RDW Coefficient of Variation 14.6 % (11.5-14.5); RDW Standard Deviation 48.9 fL (36.4-46.3); White Blood Count 9.89 K/ul (4.8-10.8)
[2023-03-17 05:48] LABS: Albumin Globulin Ratio 1.2 (0.9-2); Albumin Level 4.1 gm/dl (3.4-5.0); BUN Creatinine Ratio 20.6 (10-20); Bilirubin,Total 0.3 mg/dl (0.2-1.0); Calcium 8.8 mg/dl (8.6-10.3); Creatinine Clr Calc Pharmacy 102.4 ml/min; Est GFR (African American) 121.6 ml/min; Est GFR (Non-African American) 104.9 ml/min; Globulin 3.3 gm/dl (2.5-4.0); Potassium 4.5 mmol/L (3.5-5.1); Total Protein 7.4 gm/dl (6.0-8.3)
[2023-03-17] MEDS: LORazepam 0.5 MG in SYRINGE 0.25 ML IV PRN (06:23)
[2023-03-17] MEDS ORDERED: LORazepam 0.5 MG in SYRINGE 0.25 ML IV PRN (06:36)
[2023-03-17] MEDS: methylPREDNISolone 40 MG in SYRINGE 0 ML IV SCH ×2 (08:11→20:33)
[2023-03-17] MEDS: guaiFENesin 600 MG TABCR PO SCH ×2 (08:11→20:32)
[2023-03-17] MEDS: BENZONATATE 100 MG CAPSULE PO SCH ×3 (08:11→20:32)
[2023-03-17] MEDS: OSELTAMIVIR PHOSPHATE 75 MG CAP PO SCH ×2 (08:11→20:32)
--- NOTE | 2023-03-17 10:11 | Hospitalist Progress Note ---
Date of Service March 17, 2023 Assessment & Plan (1) Acute respiratory failure with hypoxia: Plan: -Pt with history of asthma presenting with acute respiratory symptoms, positive for Flu A on admission, and resultant hypoxic respiratory failure -Supportive care as follows -Duoneb q4 -S/p Solumedrol 125 mg in ER -> Solumedrol 40 mg BID with low threshold to transition to prednisone -Tamiflu 75 mg BID x5 days -Mucinex BID -Benzonatate PRN cough -Incentive spirometry -Supplemental O2 as needed, wean to RA - Ativan 0.5mg added for acute agitation contributing to respiratory difficulty -Deferring antibiotics given low concern for superimposed bacterial infection -Alternating between NC and BiPAP as needed for significant dyspnea/SOB -Consider 2-step prior to discharge (2) Asthma with exacerbation: Plan: -See above -Does not appear to be on any maintenance inhalers as outpatient (3) Flu-2008 H1N1 w oth resp: Plan: -See above -Droplet precautions (4) Sinus tachycardia: Plan: -Likely physiologic/compensatory to acute illness -EKG NSR w/o arrhythmia/ectopy noted -As pt will receive steroids and required BIPAP for AHRF in ER, will monitor on telemetry for now (5) Elevated blood pressure reading: Plan: -Elevated BP in ER w/o formal diagnosis of HTN as outpatient -BP elevation likely secondary to acute illness -Anticipate elevated BP while on steroids, continue to monitor -Outpatient f/u with PCP recommended Plan FENGI: Regular Code status: Full DVT prophylaxis: SCDs Isolation: Droplet Unit: Medical/surgical with telemetry Disposition planning: Likely home Admission and Anticipated Discharge Date Admission Date: March 15, 2023 Supervising Physician Co-Signing Physician Notes Attending Physician Supervision Note: I independently interviewed and examined the patient and verified the romo history and physical, reviewed labs and image studies and agree with findings and care plan noted above. Breathing better but still with wheezing and cough - needing breathing treatment q4hrs - wondering if she can get them more often. vitals noted, sitting at the edge of bed. air entry across lung field restricted. tachycardic. Acute respiratory failure, hypoxic due to asthma exacerbation in setting of influenza - -O2 support, bipap at night. steroids - 40mg bid (one spot dose 40mg IV ordered this afternoon), tamiflu, nebs - add q2hr prn albuterol dose, symptom tx. ambulation. Subjective Mireille Welch is a 48yo female w/ PMHx of asthma that presented to the ED with dyspnea. ED work up revealed positive test for Influenza A. She is currently sitting upright at the edge of her bed with 2L O2 NC. She states that she feels that she is still working to breathe. She denies cough, n/v/d. She does not have any other concerns at this time. Review of Systems Review of Systems: As per HPI. Physical Exam Physical Exam: General: Alert. Oriented to person, time, and place. Afebrile. No acute distress. NC in place. Cardiac: Regular rate and rhythm, no murmurs/rubs/gallops. Respiratory: Wheezing present. Moderate dyspnea. Symmetrical chest rise. No respiratory distress. Abdomen: Soft, nontender, nondistended. Bowel sounds present. Lower Extremities: No lower extremity edema or swelling. No deep calf pain. Chris's negative bilaterally. Results & Data Results & Data Vital Signs (Past 12 Hours) Vital Signs Temp Pulse Pulse Resp BP Pulse Ox O2 Del Method 03/17/23 08:23 36.8 C 112 H 16 141/95 H 99 Nasal Cannula 03/17/23 07:52 114 H 03/17/23 07:28 Nasal Cannula 03/17/23 06:22 109 H 20 94 Nasal Cannula 03/17/23 02:50 109 H 21 94 03/17/23 02:49 109 H 21 94 BiPAP 03/16/23 23:51 112 H 03/16/23 22:59 115 H 23 95 03/16/23 22:58 115 H 23 95 BiPAP O2 Flow Rate 03/17/23 08:23 2 03/17/23 07:52 03/17/23 07:28 2 03/17/23 06:22 2 03/17/23 02:50 2 03/17/23 02:49 2 03/16/23 23:51 03/16/23 22:59 2 03/16/23 22:58 2 Resident Activity Tracking Resident Involvement: Resident Care Provided Care Provided: Adult Hospital Medicine (2) Asthma with exacerbation Asthma persistence: intermittent Asthma severity: unspecified severity Qualified Code(s): J45.21 - Mild intermittent asthma with (acute) exacerbation
[2023-03-17] MEDS ORDERED: CODEINE SULFATE 30 MG TAB PO PRN (10:34)
[2023-03-17] MEDS ORDERED: ALBUTEROL 0.083% NEBU SOLN 3 ML VIAL NEB PRN (14:11)
[2023-03-17] MEDS ORDERED: methylPREDNISolone 40 MG in SYRINGE 0 ML IV ONE (15:30)
[2023-03-17] MEDS ORDERED: PNEUMOCOCCAL VACCINE (PCV20) 20-VAL CONJ-DIP CRM/PF 0.5 ML SYR IM ONE (18:13)
[2023-03-17] MEDS ORDERED: INFLUENZA VIRUS QUADRIVALENT VACCINE (IIV4) 0.5 ML SYR IM ONE (18:13)
[2023-03-18] MEDS: ALBUT/IPRATROP 3MG/0.5MG NEB 3 ML VIAL NEB SCH ×6 (04:05→22:56)
[2023-03-18 04:59] LABS: Basophils # (auto) 0.01 K/uL (0.00-0.20); Basophils % (auto) 0.1 %; Hematocrit (blood only) 41.7 % (37.0-47.0); Hemoglobin 13.4 g/dl (12.0-16.0); Immature Granulocytes # (auto) 0.03 K/uL (0.01-0.20); Immature Granulocytes % (auto) 0.4 %; Lymphocytes # (auto) 0.74 K/uL (1.20-3.40); Mean Corpuscular Hemoglobin 28.3 pg (25.0-34.0); Mean Corpuscular Hgb Conc 32.1 g/dL (32.0-36.0); Mean Corpuscular Volume 88.2 fL (80.0-100.0); Mean Platelet Volume 9.2 fL (9.4-12.4); Monocytes # (auto) 0.54 K/uL (0.11-0.59); Monocytes % (auto) 6.6 %; Neutrophils # (auto) 6.89 K/uL (1.40-6.50); Neutrophils % (auto) 83.9 %; Platelet Count 376 K/uL (130-400); RDW Coefficient of Variation 14.5 % (11.5-14.5); RDW Standard Deviation 46.9 fL (36.4-46.3); Red Blood Count 4.73 M/uL (4.20-5.40); White Blood Count 8.21 K/ul (4.8-10.8)
[2023-03-18 05:18] LABS: Albumin Globulin Ratio 1.3 (0.9-2); Albumin Level 4.1 gm/dl (3.4-5.0); BUN Creatinine Ratio 19.7 (10-20); Bilirubin,Total 0.5 mg/dl (0.2-1.0); Calcium 9.4 mg/dl (8.6-10.3); Creatinine Clr Calc Pharmacy 97.7 ml/min; Est GFR (African American) 118.4 ml/min; Est GFR (Non-African American) 102.1 ml/min; Globulin 3.2 gm/dl (2.5-4.0); Potassium 4.1 mmol/L (3.5-5.1); Total Protein 7.3 gm/dl (6.0-8.3)
[2023-03-18] MEDS: methylPREDNISolone 40 MG in SYRINGE 0 ML IV SCH ×2 (08:19→20:33)
[2023-03-18] MEDS: BENZONATATE 100 MG CAPSULE PO SCH ×3 (08:19→20:32)
[2023-03-18] MEDS: guaiFENesin 600 MG TABCR PO SCH ×2 (08:19→20:32)
[2023-03-18] MEDS: OSELTAMIVIR PHOSPHATE 75 MG CAP PO SCH ×2 (08:19→20:32)
[2023-03-18] MEDS: FLUTICASONE/VILANTEROL 200/25MCG 14 PUFFS/INHALER INH SCH (10:35)
--- NOTE | 2023-03-18 11:11 | Hospitalist Progress Note ---
Date of Service March 18, 2023 Assessment & Plan (1) Acute respiratory failure with hypoxia: Plan: - Pt with history of asthma presenting with acute respiratory symptoms, positive for Flu A on admission, and resultant hypoxic respiratory failure - Supportive care as follows -Duoneb q4 -S/p Solumedrol 125 mg in ER -> Solumedrol 40 mg BID with low threshold to transition to prednisone -Tamiflu 75 mg BID x5 days -Mucinex BID -Benzonatate PRN cough -Incentive spirometry -Supplemental O2 as needed, wean to RA - Ativan 0.5mg added for acute agitation contributing to respiratory difficulty - Added albuterol neb q2h as needed - Consider 2-step prior to discharge (2) Asthma with exacerbation: Plan: -See above -Does not appear to be on any maintenance inhalers as outpatient (3) Flu-2009 H1N1 w oth resp: Plan: -See above -Droplet precautions (4) Transaminitis: Plan: - New transaminitis in am labs (AST 153, ALT 141) - Will hold Codeine for the time being - Monitor CMP and reassess in the am to see if there is a trend (5) Sinus tachycardia: Plan: -Likely physiologic/compensatory to acute illness -EKG NSR w/o arrhythmia/ectopy noted -As pt will receive steroids and required BIPAP for AHRF in ER, will monitor on telemetry for now (6) Elevated blood pressure reading: Plan: -Elevated BP in ER w/o formal diagnosis of HTN as outpatient -BP elevation likely secondary to acute illness -Anticipate elevated BP while on steroids, continue to monitor -Outpatient f/u with PCP recommended Plan FENGI: Regular Code status: Full DVT prophylaxis: SCDs Isolation: Droplet Unit: Medical/surgical with telemetry Disposition planning: Likely home Admission and Anticipated Discharge Date Admission Date: March 15, 2023 Supervising Physician Co-Signing Physician Notes Attending Physician Supervision Note: I independently interviewed and examined the patient and verified the romo history and physical, reviewed labs and image studies and agree with findings and care plan noted above. Breathing better but still with distress, + cough. vitals noted, mild resp distress. better air entry today. tachycardic. Acute respiratory failure, hypoxic due to asthma exacerbation in setting of influenza - -O2 support. didn't need bipap last night. steroids - 40mg bid, tamiflu, nebs - added q2hr prn albuterol dose 1216 - since needing it consistently - add LABA/ICS inhaler, symptom tx. Intermittent severe asthma - Has advair at home but hasn't used it in over one year. Added Janet Vigil while hospitalized. ambulation. Subjective Mireille Welch is a 48yo female w/ PMHx of asthma that presented to the ED with dyspnea. ED work up revealed positive test for Influenza A. She is currently sitting upright at the edge of her bed with 2L O2 NC. She reports feeling better today with regards to her breathing. Has not used the BiPAP since yesterday morning. Her cough has been improving compared to yesterday. Denies n/v/d. She does not have any other concerns at this time. Review of Systems Review of Systems: As per HPI. Physical Exam Physical Exam: General: Alert. Oriented to person, time, and place. Afebrile. No acute distress. NC in place. Cardiac: Regular rate and rhythm, no murmurs/rubs/gallops. Respiratory: No wheezing on auscultation. Decreased breath sounds in bilateral bases. Symmetrical chest rise. No respiratory distress. Abdomen: Soft, nontender, nondistended. Bowel sounds present. Lower Extremities: No lower extremity edema or swelling. No deep calf pain. Chris's negative bilaterally. Results & Data Results & Data Vital Signs (Past 12 Hours) Vital Signs Temp Pulse Pulse Resp BP BP Pulse Ox 03/18/23 10:38 97 H 18 95 03/18/23 07:59 36.9 C 111 H 17 137/87 93 03/18/23 07:32 107 H 03/18/23 07:10 03/18/23 07:08 101 H 18 96 03/18/23 04:05 100 H 18 94 03/18/23 03:15 37 C 88 20 133/86 93 03/18/23 01:18 106 H 20 93 03/18/23 01:00 03/18/23 00:32 106 H Pulse Ox O2 Del Method O2 Del Method O2 Flow Rate O2 Flow Rate 03/18/23 10:38 Room Air 03/18/23 07:59 Nasal Cannula 2 03/18/23 07:32 03/18/23 07:10 Nasal Cannula 1 03/18/23 07:08 Nasal Cannula 0.5 03/18/23 04:05 Nasal Cannula 1 03/18/23 03:15 Nasal Cannula 2 03/18/23 01:18 Nasal Cannula 1 03/18/23 01:00 93 Nasal Cannula 1 03/18/23 00:32 Resident Activity Tracking Resident Involvement: Resident Care Provided Care Provided: Adult Hospital Medicine (2) Asthma with exacerbation Asthma persistence: intermittent Asthma severity: unspecified severity Qualified Code(s): J45.21 - Mild intermittent asthma with (acute) exacerbation
[2023-03-18] MEDS: ACETAMINOPHEN 500 MG TAB PO PRN (18:59)
[2023-03-19] MEDS: ALBUT/IPRATROP 3MG/0.5MG NEB 3 ML VIAL NEB SCH ×3 (02:19→10:58)
[2023-03-19 06:06] LABS: Hematocrit (blood only) 40.2 % (37.0-47.0); Mean Corpuscular Hemoglobin 28.2 pg (25.0-34.0); Mean Corpuscular Hgb Conc 32.3 g/dL (32.0-36.0); Mean Corpuscular Volume 87.2 fL (80.0-100.0); Mean Platelet Volume 9.4 fL (9.4-12.4); Platelet Count 371 K/uL (130-400); RDW Coefficient of Variation 14.6 % (11.5-14.5); Red Blood Count 4.61 M/uL (4.20-5.40); White Blood Count 6.89 K/ul (4.8-10.8)
[2023-03-19 06:26] LABS: Albumin Globulin Ratio 1.3 (0.9-2); Albumin Level 3.9 gm/dl (3.4-5.0); Bilirubin,Total 0.4 mg/dl (0.2-1.0); Calcium 8.7 mg/dl (8.6-10.3); Creatinine Clr Calc Pharmacy 124.1 ml/min; Est GFR (African American) 129.6 ml/min; Est GFR (Non-African American) 111.8 ml/min; Potassium 4.4 mmol/L (3.5-5.1); Total Protein 6.9 gm/dl (6.0-8.3)
[2023-03-19 06:32] LABS: Basophils # (auto) 0.02 K/uL (0.00-0.20); Basophils % (auto) 0.3 %; Immature Granulocytes # (auto) 0.06 K/uL (0.01-0.20); Immature Granulocytes % (auto) 0.9 %; Lymphocytes # (auto) 1.16 K/uL (1.20-3.40); Lymphocytes % (auto) 16.8 %; Monocytes # (auto) 0.43 K/uL (0.11-0.59); Monocytes % (auto) 6.2 %; Neutrophils # (auto) 5.22 K/uL (1.40-6.50); Neutrophils % (auto) 75.8 %
[2023-03-19] MEDS: OSELTAMIVIR PHOSPHATE 75 MG CAP PO SCH (08:45)
[2023-03-19] MEDS: methylPREDNISolone 40 MG in SYRINGE 0 ML IV SCH (08:45)
[2023-03-19] MEDS: guaiFENesin 600 MG TABCR PO SCH (08:46)
[2023-03-19] MEDS: BENZONATATE 100 MG CAPSULE PO SCH (08:46)
[2023-03-19] MEDS: FLUTICASONE/VILANTEROL 200/25MCG 14 PUFFS/INHALER INH SCH (08:46)
--- NOTE | 2023-03-19 11:42 | Discharge Summary ---
Date of Service March 19, 2023 Admission HPI Per Admitting Provider Pt is 48 yo F with PMH RAD presenting with dyspnea. Pt reports onset of multiple symptoms on evening of 12/12- cough productive of clear/yellow sputum, nasal/chest congestion, shortness of breath. She did have sick contacts among her coworkers who had similar symptoms prior to her own symptom onset. Pt has tried using her albuterol inhaler at home and a nebulizer treatment the previous evening but did not have any relief. Her symptoms continued to worsen until she presented to ER for evaluation. Denies fever, chills, chest pain. No recent travel. She usually gets flu vaccine but did not do so this year. She has not an asthma exacerbation for several years. Pt arrived to ER with HR 120s-130s, BP elevated to 150s-170s/90s-110s, RR to 30s. She became hypoxic to 88% O2 for which she was started on 6L NC and transitioned to oxymask 7L without any improvement. She was put on BIPAP 10/5 after no improvement with duoneb, which did provide relief of dyspnea and resolved hypoxia, eventually being weaned to 3L NC. Initial workup unremarkable including CBC, CMP, troponin. CXR negative for acute process. Flu A positive. ER interventions include Solumedrol 125 mg, Mucinex 1200 mg, albuterol 12 ml nebulizer, NSS 1L bolus, Tamiflu. At present, pt reports feeling much better compared to ER arrival. No new complaints. Admission Exam Per Admitting Provider General: well-appearing, no acute distress, NC in place at 3L O2 HEENT: PERRL, EOMI, conjunctivae clear without injection, anicteric sclerae, moist mucous membranes, clear oropharynx without exudate or erythema Neck: supple, trachea midline, no thyromegaly, no JVD, no cervical lymphadenopathy CV: RRR, normal S1 and S2, no murmurs Resp: Very slightly diminished breath sounds without increased work of breathing, no crackles or wheezes Abd: Soft, nontender, nondistended, no guarding or rebound, no hepatosplenomegaly MSK: Normal bulk of all four extremities Neuro: AOx3, no focal motor or sensory deficits Skin: no rashes or lesions, warm and dry Ext: no LE peripheral edema or erythema, capillary refill <2s in all four extremities, 2+ LE peripheral pulses b/l Principal Diagnosis Asthma exacerbation due to Influenza A Discharge Exam General: Alert. Oriented to person, time, and place. Afebrile. No acute distress. NC in place. Cardiac: Regular rate and rhythm, no murmurs/rubs/gallops. Respiratory: Minimal to no wheezing on auscultation. Improved air movement. Symmetrical chest rise. No respiratory distress. Abdomen: Soft, nontender, nondistended. Bowel sounds present. Lower Extremities: No lower extremity edema or swelling. No deep calf pain. Chris's negative bilaterally. Discharge Data Allergies Allergy/AdvReac Type Severity Reaction Status Date / Time No Known Allergies Allergy Verified 03/15/23 22:10 Consultations 03/15/23 23:22 ED Decision to Admit Stat Hospital Course (1) Acute respiratory failure with hypoxia: Resolved - Pt with history of asthma presenting with acute respiratory symptoms, positive for Flu A on admission, and resultant hypoxic respiratory failure - Supportive care as follows -Duoneb q4 -S/p Solumedrol 125 mg in ER -> Solumedrol 40 mg BID -Tamiflu 75 mg BID x5 days -Mucinex BID -Benzonatate PRN cough -Incentive spirometry -Supplemental O2 as needed -Albuterol neb q2h as needed -Breo Ellipta inh - Today breathing at room air with minimal to no wheezing on exam. Patient breathing easier and more comfortably. Will discharge today with albuterol and breo ellipta inhalers. (2) Asthma with exacerbation: Resolved - As above (3) Flu-2009 H1N1 w oth resp: Acute, stable - As above (4) Transaminitis: Resolved - New transaminitis in yesterday labs (AST 153, ALT 141) Improved (today AST 71 and ALT 110) - Likely related to current influenza infection and exacerbated state on arrival (5) Sinus tachycardia: Resolved -Likely physiologic/compensatory to acute illness -EKG NSR w/o arrhythmia/ectopy noted (6) Elevated blood pressure reading: Resolved -Elevated BP in ER w/o formal diagnosis of HTN as outpatient -BP elevation likely secondary to acute illness - To f/u with PCP Plan Patient evaluated at bedside and found aaox3, calm, and in no acute distress. Patient reports she has been able to breathe better, and has been feeling much better. We find her to be stable and fit to be discharged today. Total Time Total Time Spent Total Time Spent (In Minutes): <30 Discharge Plan Discharge Items Patient Disposition: Home - Self-Care Reason For Visit: AHRF Discharge Diagnosis: asthma exacerbation due to influenza A Activity: Per Instructions section Non-emergency contact: Primary Care Provider Call non-emergency contact if: your symptoms worsen Follow-up/Referrals: Warren Johnson III, CRNP [Primary Care Provider] - 03/29/23 4:00 pm Diet: Regular Addtl Attending Provider Instructions: You were admitted to the hospital for an asthma exacerbation that came as a consequence to a combination of a new influenza A infection, plus having run our of your home inhalers, which lead to poor management of symptoms. You were treated with duoneb and albuterol nebulizer therapy, as well as Aliya Ellipta inhaler, which will be sent to your pharmacy as we as a script for albuterol inhaler. A discharge summary will be sent to your primary care physician to ensure continuity of care. Please bring this discharge summary with you to your next office appointment so that your provider can review it at that time. Follow-up appointments: Make a follow-up appointment with your PCP within the next week. It is very important that you follow up with them shortly after discharge from the hospital. Keep all your follow-up appointments as already scheduled. If you cannot make an appointment, notify your provider. Medications: Your medication list has been reviewed and reconciled upon discharge to ensure accuracy and continuity of care. An updated list of all your medications is included with your hospital discharge paperwork. Please review this list closely, and make note of any changes. If you have any issues filling these prescriptions, please call [phone] and ask to leave a message for Dr. Oliva. Take your medications as instructed; do not skip a dose of your medicines. Make sure all of your doctors know every medicine you are taking (including [id number] medicines, vitamins, and supplements). Call your primary care provider before taking any new medicines (including over- the-counter medicines, vitamins, and supplements), because some of these may interact with your current medications, or may make your symptoms worse. Tell your primary care provider if you cannot afford your medications. CONTACT YOUR PRIMARY CARE PROVIDER if you experience any of the following: Worsening of symptoms Fever, chills, or fatigue Difficulty following your treatment plan, or difficulty taking medications CALL 911 OR GO TO THE EMERGENCY DEPARTMENT if you experience any of the following: Sudden, severe abdominal pain or nausea/vomiting Severe chest pain, or chest pain that radiates (moves) to your jaw or arm Sudden, severe shortness of breath or difficulty breathing Thank you for allowing us to participate in your care. Pending Studies at Discharge: No Stand-Alone Forms: [facility], Smoking Cessation Medications and DC Order Prescriptions: New oseltamivir [Tamiflu] 75 mg Capsule 75 mg PO BID Qty: 3 0RF benzonatate 100 mg Capsule 100 mg PO TID Qty: 30 0RF guaifenesin [Mucinex] 600 mg Tablet Extended Release 12hr 1,200 mg PO Q12 Qty: 30 0RF fluticasone furoate-vilanterol [Breo Ellipta] 200-25 mcg/dose Blister With Device 1 inh inhalation DAILY Qty: 60 0RF albuterol sulfate 90 mcg/actuation HFA aerosol inhaler 2 inh inhalation Q6H PRN (Reason: shortness of breath or wheezing) Qty: 6.7 0RF Changed albuterol sulfate 90 mcg/actuation HFA aerosol inhaler 2 puff INH Q6H PRN (Reason: shortness of breath or wheezing) Qty: 8.5 0RF Discharge Orders: Discharge Order (Routine); Ordered 03/19/23 Ordered By: Cornelia Oliva Admission Data Admit Date/Time: 03/15/23 23:47 Attending Provider: Juan Chong Admit Provider: Gilberto Sandoval Primary Care Provider: Warren Johnson III Other Providers: Saleem Simmons Other Interventions: Discharge Summary Assessment (RN) Last Done: 03/19/23 12:01 Supervising Physician Co-Signing Physician Notes I personally examined the patient and verified all romo points of history and e xam, discussed case, and agree with decision making with Dr Oliva feeling better and would like to go home. vitals noted nad heent nc at mmm breathing on RA no conversational dyspnea no respiratory distress no accessory muscle use. skin without rashes/pallor/icterus Acute respiratory failure, hypoxic due to asthma exacerbation in setting of influenza - -doing better. safe/stable for home; home inhalers sent. ambulation for DVT proph. Resident Activity Tracking Resident Involvement: Resident Care Provided Care Provided: Adult [facility]
--- NOTE | 2023-03-19 17:11 | Billing Data ---
Date of Service March 19, 2023 Coding Level of Care Code 52245 IN/OBS DISCH 30 MIN/LESS
== END 2023-03-19 12:58 | disposition home or self-care (01) | DRG 193 ==
LOC: ED 20:23 → SUATTDRO 23:47 → 2W 23:47